=== PATIENT | female | born 1990 | race Hispanic/Latino ===

== ENCOUNTER 2023-07-24 20:35 | Emergency (ER) | payer OTHER ==
[2023-07-24] MEDS ORDERED: Ketorolac Tromethamine 30 MG/ML VIAL ONE (20:58)
[2023-07-24] MEDS ORDERED: Cyclobenzaprine 10 MG TAB ONE (20:59)
== END 2023-07-24 21:17 | disposition home or self-care (01) ==
LOC: MADERS 20:35
DX: S39.012A Strain of muscle, fascia and tendon of lower back, initial encounter (principal); M79.671 Pain in right foot; V89.2XXA Person injured in unspecified motor-vehicle accident, traffic, initial encounter
CPT/HCPCS: 96372; 99283; J1885

== ENCOUNTER 2024-11-10 12:19 | Emergency (ER) | payer OTHER ==
[2024-11-10] MEDS ORDERED: Ondansetron ODT 4 MG TAB ONE (12:50)
[2024-11-10] MEDS ORDERED: Lidocaine Viscous Sol 2% 15 ml UD Cup ONE (12:50)
[2024-11-10] MEDS ORDERED: Mag-Al 1200 mg/1200 mg/30 ML UDCUP ONE (12:50)
== END 2024-11-10 13:23 | disposition home or self-care (01) ==
LOC: MADERS 12:19
DX: K22.6 Gastro-esophageal laceration-hemorrhage syndrome (principal); K21.9 Gastro-esophageal reflux disease without esophagitis
CPT/HCPCS: 99283; Q0162